=== PATIENT | male | born 1985 | race Caucasian/White ===

== ENCOUNTER 2018-07-31 23:21 | Emergency (ER) | payer SELFPAY ==
[~2018-07-31] VITALS: Ht 180.3 cm; Wt 92.0 kg
[2018-07-31 23:27] VITALS: BP 171/109; PULSE 99; RESP 19; Ht 180.3 cm; Wt 92.0 kg
== END 2018-08-01 01:21 | disposition left against medical advice (07) ==
LOC: FTE 23:21
DX: Z53.21 Procedure and treatment not carried out due to patient leaving prior to being seen by health care provider (principal)